=== PATIENT | female | born 1940 | race Caucasian/White ===

== ENCOUNTER 2016-09-23 07:59 | Emergency (ER) | payer OTHER ==
--- NOTE | 2016-09-23 08:16 | EDPHY ---
H & P Stated Complaint: STRUCK LEFT HAND AGAINST A TABLE Time Seen by Provider: 09/23/16 08:15 HPI/ROS: CHIEF COMPLAINT: Left hand injury HISTORY OF PRESENT ILLNESS: The patient presents to the ED complaining of left hand pain and swelling. She has marked pain soft tissue swelling noted over her thenar eminence. While throwing a blanket onto a bed, the patient struck a television senior marketing associate her room prior to arrival. The patient felt as if there may have been some deformity noted to the 1st digit. The patient complains of moderate to severe pain with palpation. She denies acute numbness or weakness. The patient is not on blood thinners. REVIEW OF SYSTEMS: A comprehensive 10 point review of systems is otherwise negative aside from elements mentioned in the history of present illness. Source: Patient Exam Limitations: No limitations - Personal History Current Tetanus/Diphtheria Vaccine: Yes Tetanus Vaccine Date: <M 10 YEARS - Medical/Surgical History Hx Asthma: Yes Hx Chronic Respiratory Disease: No Hx Diabetes: No Hx Cardiac Disease: No Hx Renal Disease: No Hx Cirrhosis: No Hx Alcoholism: No Hx HIV/AIDS: No Hx Splenectomy or Spleen Trauma: No Other PMH: PMH: ASTHMA. PSH: HYSTERECTOMY, THYROIDECTOMY, KIDNEY CANCER AND REMOVAL, PARATHYROIDECTOMY - Social History Smoking Status: Never smoked - Physical Exam Exam: General Appearance: Alert, no distress Skin: Bruising and ecchymosis noted to the left hand predominantly over the thenar eminence. Bruising ecchymosis noted over the dorsal aspect of the 2nd and 3rd MCP joints. Extremities: Tenderness to palpation throughout the left 1st finger. Decreased range of motion with flexion and extension noted at the 1st finger Neurological: Sensation intact to light touch in the left upper extremity Constitutional: Initial Vital Signs Temperature (C) 36.6 C 09/23/16 08:00 Heart Rate 86 09/23/16 08:00 Respiratory Rate 16 09/23/16 08:00 Blood Pressure 167/98 H 09/23/16 08:00 O2 Sat (%) 96 09/23/16 08:00 O2 Delivery Mode Room Air Allergies/Adverse Reactions: azithromycin [From Zithromax] Allergy (Severe, Verified 07/30/09 10:57) C DIFF cephalexin [Cephalexin] Allergy (Severe, Verified 07/30/09 10:59) Diarrhea cephalexin monohydrate [From Keflex] Allergy (Severe, Verified 07/30/09 10:59) THICKENED TONGUE, DIARRHEA clindamycin [Clindamycin] Allergy (Severe, Verified 07/30/09 10:57) C DIFF metronidazole [From Flagyl] Allergy (Severe, Verified 07/30/09 10:56) POSSIBLE TIA SYMPTOMS Metronidazole HCl [From Flagyl] Allergy (Severe, Verified 07/30/09 10:56) POSSIBLE TIA SYMPTOMS Penicillins Allergy (Severe, Verified 07/30/09 10:58) THROAT CLOSES Sulfa (Sulfonamide Antibiotics) Allergy (Severe, Verified 07/30/09 10:58) KIDNEY DAMAGE banana Allergy (Verified 02/02/16 17:37) clarithromycin Allergy (Verified 02/02/16 17:37) ARTICHOKE, EGG PLANT Allergy (Severe, Uncoded 07/30/09 11:00) BLEEDING MOUTH Home Medications: Medication Instructions Recorded Estropipate [Ogen 1.5mg (*)] 1.5 mg PO DAILY 06/02/09 Lactobacillus Acidophilus 1 each PO MWF 02/02/16 [Acidophilus Lactobacillus] Multivitamins [Multivitamin (*)] 1 each PO DAILY 02/02/16 [place]-3 Fatty Acids [Fish Oil 1000 1,000 mg PO MWF 02/02/16 mg (*)] Ubidecarenone [Coenzyme Q-10] 200 mg PO DAILY 02/02/16 Acetaminophen [Tylenol ES 500 mg 1,000 mg PO Q8 #60 tab 02/05/16 (*)] Ibuprofen [Motrin (*)] 200 mg PO Q6 #40 tab 02/05/16 Levothyroxine [Synthroid 50 mcg 50 mcg PO DAILY AT 6AM #0 tab 02/05/16 (*)] Hydrocodone/APAP 5/325 [Cortland 1 - 2 each PO Q6 PRN #20 tab 09/23/16 5/325] Medical Decision Making - Diagnostics Imaging Results: Imaging Impressions Hand X-Ray 09/23/16 08:15 Impression: 1. Moderate degenerative osteoarthritic change at the thumb carpometacarpal joint, with no convincing evidence of an acute superimposed fracture. Nonetheless, if there is a high clinical concern regarding an occult carpal fracture, conservative management and short-term repeat radiographic follow-up in 7-14 days is suggested. 2. Chondrocalcinosis. 3. Bone demineralization. LEFT HAND (3 Views, at 8:31 AM): There is soft tissue swelling at the thenar eminence with mild separation of the webspace of between the first and second metacarpals (consistent with the clinically observable soft tissue hematoma), and on the lateral view there appears to be some dorsal soft tissue swelling at the level of the metacarpophalangeal joints. There is no radiopaque foreign body. There is no convincing acute fracture. Moderately advanced degenerative osteoarthritic change at the thumb carpometacarpal joint is seen. Chondrocalcinosis in the wrist is observed. Impression: There is no acute osseous abnormality identified. Results were discussed with Dr. Liam Painting at 8:48 AM on 09/23/2016. Wrist X-Ray 09/23/16 08:16 Impression: 1. Moderate degenerative osteoarthritic change at the thumb carpometacarpal joint, with no convincing evidence of an acute superimposed fracture. Nonetheless, if there is a high clinical concern regarding an occult carpal fracture, conservative management and short-term repeat radiographic follow-up in 7-14 days is suggested. 2. Chondrocalcinosis. 3. Bone demineralization. LEFT HAND (3 Views, at 8:31 AM): There is soft tissue swelling at the thenar eminence with mild separation of the webspace of between the first and second metacarpals (consistent with the clinically observable soft tissue hematoma), and on the lateral view there appears to be some dorsal soft tissue swelling at the level of the metacarpophalangeal joints. There is no radiopaque foreign body. There is no convincing acute fracture. Moderately advanced degenerative osteoarthritic change at the thumb carpometacarpal joint is seen. Chondrocalcinosis in the wrist is observed. Impression: There is no acute osseous abnormality identified. Results were discussed with Dr. Liam Painting at 8:48 AM on 09/23/2016. ED Course/Re-evaluation: The patient presents to the ED after a possible dislocation of her 1st MTP joint. The patient is noted to be neurovascularly intact. X-rays demonstrate no evidence of an obvious fracture. The patient is noted to have fairly significant soft tissue swelling and tenderness involving the 1st MTP joint. Given the extent of the soft tissue swelling, I did consult with Dr. Carter our on -call hand surgeon. Dr. Carter did evaluate the patient in the emergency department. At this point time there is not an indication for surgical intervention. The patient will be discharged home with close follow up with Hand surgery. She is given customary aftercare instructions and return precautions. Differential Diagnosis: Differential diagnosis considered includes fracture, sprain, dislocation, neurovascular injury, compartment syndrome - Data Points Medications Given: Discontinued Medications Acetaminophen (Tylenol) 650 mg PO EDNOW ONE Stop: 09/23/16 09:23 Last Admin: 09/23/16 09:25 Dose: 650 mg Departure - Departure Disposition: Home, Routine, Self-Care Clinical Impression: Contusion, hand Qualifiers: Encounter type: initial encounter Laterality: left Qualified Code(s): S60.222A - Contusion of left hand, initial encounter Condition: Good Instructions: Contusion in Adults (ED) Additional Instructions: 1. Wear splint and ice as directed per Dr. Carter. 2. Cortland as needed for pain. 3. Please return to the ED for markedly worsening pain or other concerns. Referrals: Nicolas Carter MD [Medical Doctor] - As per Instructions
[2016-09-23] MEDS ORDERED: ACETAMINOPHEN 325 MG TAB PO ONE (09:22)
[2016-09-23 11:02] VITALS: BP 131/112; PULSE 64; RESP 18; TEMP 98.2; O2SAT 97
--- NOTE | 2016-09-23 20:23 | GCON ---
[f rep st] CONSULTATION EMERGENCY DEPARTMENT CONSULTATION NOTE DATE OF CONSULTATION: 09/23/2016 REASON FOR CONSULTATION: Left hand injury. HISTORY: The patient is a 76-year-old otherwise healthy female who earlier today was throwing a tennille nket over her bed when she impacted forcefully against a rigid plastic TV stand. She felt that ther e was a deformity of her thumb which she pulled on and snapped back into place. There was marked sw elling of her hand at presentation. I have reviewed patient's intake and discussed her care with Dr Pat Painting in the [facility] Emergency Department. He was concerned about the rapid advancement of profo und swelling of her hand. I reviewed the rest of her history, including a brief review of systems, that indicate no history of bleeding diathesis. FOCUSED EXAMINATION: Her right hand is markedly swollen over the index finger metacarpophalangeal j oint. Dr. Painting re-examined the patient and noted that the swelling over the thenar muscle group w as diminished dramatically from the time of her presentation, roughly an hour prior to my visit with the patient. She has a normal sensory examination to light touch in the radial, median, and ulnar nerve distributions. Capillary refill is 2 seconds; less in the finger pulps. She has minimal swel ling around the 1st CMC joint, but is markedly tender to any attempts to move the 1st CMC joint. Th ere is some slight grinding sensation when this joint is moved manually. I have not attempted to mo ve her index finger metacarpophalangeal joint just due to the sheer swelling that she has a dorsally . There is no swelling palmarly at all. I have reviewed the patient's x-rays, and these do not demonstrate any obvious fracture of the index finger metacarpal or proximal phalanx, or of the thumb or radial side of the carpus. She does, how ever, have quite profound osteoarthritis on all articulating aspects of the trapezium, as well as mi ld arthritis at the distal radioulnar joint. There is some mild chondrocalcinosis of the TFCC and i n the proximal aspect of the DRUJ. She is able to make a loose composite fist today with tip-to-pal m apposition of the long, ring, and small fingers and a 2 cm tip-to-palm distance of the index finge r, mostly due to a lack of ability to flex the MP joint due to discomfort and significant swelling. Of note, she has minimal subcutaneous adipose tissue on her dorsal hands with quite visible intrins ic musculature, metacarpal bones, and dorsal veins. IMPRESSIONS/RECOMMENDATIONS: Likely spontaneous rupture of the dorsal vein of her hand. There is a possibility that she subluxed or dislocated her first carpometacarpal joint and then pulled this ba ck into position. I suspect that, with the severe osteoarthritis she has between the trapezium and 1st metacarpal, and the large intraosseous cyst in the base of the thumb metacarpal, she likely has sustained a small fracture that is not structurally significant but has caused bleeding into this ar ea. I expect that this will dissipate, and I have fabricated a splint for her today to help control the amount of motion in her hand, which should help her with the overall level of discomfort to luigi p it still. I have also explained that it would be best to see her in 6 days and follow up [facility], and potentially (at that time) initiate therapy if indicated. I explained to her what worseni ng swelling would be like and could cause, and what the risks of compartment syndrome of the hand ar e. I will see her as an outpatient. /[id number]/MODL
== END 2016-09-23 11:01 | disposition home or self-care (01) ==
DX: S60.222A Contusion of left hand, initial encounter (principal); J45.909 Unspecified asthma, uncomplicated; Z85.528 Personal history of other malignant neoplasm of kidney; W22.8XXA Striking against or struck by other objects, initial encounter; Y93.89 Activity, other specified

== ENCOUNTER → 2016-11-07 | Outpatient (CLI) | payer OTHER | LOC: BMCIMAGING 14:27 | PROVIDERS: ATTEND Family Medicine | DX: Z12.31 Encounter for screening mammogram for malignant neoplasm of breast (principal) | CPT/HCPCS: G0202 ==

== ENCOUNTER → 2017-11-09 | Outpatient (CLI) | payer OTHER | LOC: BMCIMAGING 13:03 | PROVIDERS: ATTEND Family Medicine | DX: Z12.31 Encounter for screening mammogram for malignant neoplasm of breast (principal) ==

== ENCOUNTER 2018-06-23 10:55 | Inpatient (IN) | payer OTHER ==
[2018-06-23] MEDS ORDERED: LORazepam 2 MG/ML INJ IVP ONE (11:45)
--- NOTE | 2018-06-23 11:45 | EDPHY ---
HPI/HX/ROS/PE/MDM Narrative: CHIEF COMPLAINT: Dizziness, shaky, STUBBS. HPI: This patient is a 77 year old female with history of hypothyroid. She complains of dizziness, shaking, and headache which began upon waking this morning. She endorses mild headache and back ache. Her at bedside notes she has been feeling dizzy and shaky intermittently for several months, but this is the most severe. It is generally worse in the mornings. This morning, she was unable to even stand, which is unusual for her. She is very anxious regarding her symptoms today. She does endorse some changes in her medication regimen lately, and notes she has been taking a half dose of her levothyroxine since January per her PCP's recommendation. No chest pain, difficulty breathing, fever, or other associated symptoms. REVIEW OF SYSTEMS: A comprehensive 10 system review of systems is otherwise negative aside from elements mentioned in the history of present illness and medical decision making. PMH: Hypothyroid. Asthma. Hysterectomy. Partial thyroidectomy. History of kidney cancer s/p kidney resection. Parathyroidectomy. SOCIAL HISTORY: . Retired. PCP Dr. Arevalo. PHYSICAL EXAM: General:Patient is alert, in no acute distress. ENT:Eyes are normal to inspection. ENT inspection normal. Neck: Normal inspection. Full range of motion. Respiratory:No respiratory distress. Breath sounds normal bilaterally. Cardiovascular: Regular rate and rhythm. Strong peripheral pulses. Normal cap refill. Abdomen:The abdomen is nontender to palpation. There are no peritoneal signs. There are normal bowel sounds. Back: Normal to inspection. No tenderness to palpation. Skin: Normal color. No rash. Warm and dry. Extremities: Normal appearance. Full range of motion. Neuro: Oriented x3. Normal motor function. Normal sensory function. ED Course: 77 y/o female presents with weakness, dizziness, and tremors. She is quite anxious and tremorous on exam. Plan for labs including CBC, chemistries, TSH. Plan to administer 0.5mg IV Ativan for symptom relief. Reviewed laboratory symptoms. These are largely unremarkable. TSH within normal limits. Reassessed patient. She states she is feeling better following Ativan administration and her tremor has resolved. She would like to be discharged home. Plan to discharge in good condition following road test. She will follow up with her primary care provider and with neurology for further evaluation. 14:[address] failed [address] test and now complains of diplopia. Plan to admit for further management. 14:26 Spoke with hospitalist service. Dr. Wharton accepts admission. Plan for MRI brain. - Data Points Laboratory Results: Laboratory Results 06/23/18 11:43 06/23/18 11:43 06/23/18 06/23/18 11:43 11:43 WBC 8.57 10^3/uL 10^3/uL (3.80-9.50) RBC 4.82 10^6/uL 10^6/uL (4.18-5.33) Hgb 14.6 g/dL g/dL (12.6-16.3) Hct 42.6 % % (38.0-47.0) MCV 88.4 fL fL (81.5-99.8) MCH 30.3 pg pg (27.9-34.1) MCHC 34.3 g/dL g/dL (32.4-36.7) RDW 12.9 % % (11.5-15.2) Plt Count 231 10^3/uL 10^3/uL (150-400) MPV 9.9 fL fL (8.7-11.7) Neut % (Auto) 74.2 % % (39.3-74.2) Lymph % (Auto) 18.6 % % (15.0-45.0) [place] % (Auto) 5.5 % % (4.5-13.0) Eos % (Auto) 0.8 % % (0.6-7.6) Baso % (Auto) 0.7 % % (0.3-1.7) Nucleat RBC Rel Count 0.0 % % (0.0-0.2) Absolute Neuts (auto) 6.36 10^3/uL 10^3/uL (1.70-6.50) Absolute Lymphs (auto) 1.59 10^3/uL 10^3/uL (1.00-3.00) Absolute Monos (auto) 0.47 10^3/uL 10^3/uL (0.30-0.80) Absolute Eos (auto) 0.07 10^3/uL 10^3/uL (0.03-0.40) Absolute Basos (auto) 0.06 10^3/uL 10^3/uL (0.02-0.10) Absolute Nucleated RBC 0.00 10^3/uL 10^3/uL (0-0.01) Immature Gran % 0.2 % % (0.0-1.1) Immature Gran # 0.02 10^3/uL 10^3/uL (0.00-0.10) Sodium 139 mEq/L mEq/L (135-145) Potassium 4.2 mEq/L mEq/L (3.5-5.2) Chloride 110 mEq/L mEq/L (97-110) Carbon Dioxide 19 mEq/l L mEq/l (22-31) Anion Gap 10 mEq/L mEq/L (6-14) BUN 16 mg/dL mg/dL (7-23) Creatinine 0.8 mg/dL mg/dL (0.6-1.0) Estimated GFR > 60 Glucose 88 mg/dL mg/dL (70-100) Calcium 9.4 mg/dL mg/dL (8.5-10.4) TSH 2.370 uIU/mL uIU/mL (0.465-4.680) Medications Given: Discontinued Medications Lorazepam (Ativan Injection) 0.5 mg IVP EDNOW ONE Stop: 06/23/18 11:46 Last Admin: 06/23/18 11:51 Dose: 0.5 mg General Time Seen by Provider: 06/23/18 11:14 Initial Vital Signs: Initial Vital Signs Temperature (C) 36.7 C 06/23/18 11:08 Heart Rate 89 06/23/18 11:08 Respiratory Rate 18 06/23/18 11:08 Blood Pressure 142/102 H 06/23/18 11:08 O2 Sat (%) 96 06/23/18 11:08 O2 Delivery Mode Room Air Allergies/Adverse Reactions: azithromycin [From Zithromax] Allergy (Severe, Verified 06/23/18 11:08) C DIFF cephalexin [Cephalexin] Allergy (Severe, Verified 06/23/18 11:08) Diarrhea cephalexin monohydrate [From Keflex] Allergy (Severe, Verified 06/23/18 11:08) THICKENED TONGUE, DIARRHEA clindamycin [Clindamycin] Allergy (Severe, Verified 06/23/18 11:08) C DIFF metronidazole [From Flagyl] Allergy (Severe, Verified 06/23/18 11:08) POSSIBLE TIA SYMPTOMS Metronidazole HCl [From Flagyl] Allergy (Severe, Verified 06/23/18 11:08) POSSIBLE TIA SYMPTOMS Penicillins Allergy (Severe, Verified 06/23/18 11:08) THROAT CLOSES Sulfa (Sulfonamide Antibiotics) Allergy (Severe, Verified 06/23/18 11:08) KIDNEY DAMAGE banana Allergy (Verified 06/23/18 11:08) clarithromycin Allergy (Verified 06/23/18 11:08) ARTICHOKE, EGG PLANT Allergy (Severe, Uncoded 07/30/09 11:00) BLEEDING MOUTH Home Medications: Medication Instructions Recorded Multivitamins [Multivitamin (*)] 1 each PO DAILY 02/02/16 Cholecalciferol Vit D3 [Vitamin D3 1,000 units PO DAILY 06/23/18 (*)] Diltiazem HCl [Cartia Xt] 120 mg PO DAILY 06/23/18 Estradiol [Estradiol 1 MG (*)] 1 mg PO DAILY 06/23/18 Ibuprofen [Motrin (*)] 200 mg PO DAILY PRN 06/23/18 Levothyroxine [Synthroid 50 mcg 25 mcg PO DAILY06 06/23/18 (*)] Liothyronine Sodium [Cytomel 5 mcg 2.5 mcg PO DAILY 06/23/18 (*)] Rosuvastatin Calcium [Crestor] 5 mg PO DAILY 06/23/18 Departure - Departure Disposition: [facility] Inpatient Acute Clinical Impression: Tremor, Diplopia, Weakness Condition: Fair Report Scribed for: Chucho Gomez Report Scribed by: Debbi Alejandre Date of Report: 06/23/18 Time of Report: 14:18 Physician Review and Approval Statement: Portions of this note were transcribed by an ED scribe. I personally performed the history, physical exam, and medical decision making; and confirm the accuracy of the information in the transcribed note.
[2018-06-23 11:52] LABS: PLATELET COUNT 231 10^3/uL (150-400)
[2018-06-23] MEDS ORDERED: ONDANSETRON DISINTEGRATING 4 MG TAB PO PRN (15:07)
[2018-06-23] MEDS ORDERED: ACETAMINOPHEN 325 MG TAB PO PRN (15:07)
[2018-06-23] MEDS ORDERED: ONDANSETRON 4 MG/2 ML VIAL IVP PRN (15:07)
[2018-06-23] MEDS ORDERED: NS 1,000 ML IV SCH (15:15)
--- NOTE | 2018-06-23 15:15 | PDGENHP ---
History and Physical - Chief Complaint weakness - History of Present Illness This patient is a 77 year old female with history of hypothyroid. She complains of dizziness, shaking, and headache which began upon waking this morning. She endorses mild headache and back ache. Her at bedside notes she has been feeling dizzy and shaky intermittently for several months, but this is the most severe. It is generally worse in the mornings. This morning, she was unable to even stand, which is unusual for her. No chest pain, difficulty breathing, fever, or other associated symptoms. She was noted to have anxiety and was given a low dose Benzo. Since she has been confused and c/o diplopia. Failed road test Afebrile PMH: Hypothyroid. Asthma. Hysterectomy. Partial thyroidectomy. History of kidney cancer s/p kidney resection. Parathyroidectomy. SOCIAL HISTORY: . Retired. PCP Dr. Arevalo. History Information - Allergies/Home Medication List Allergies/Adverse Reactions: azithromycin [From Zithromax] Allergy (Severe, Verified 06/23/18 11:08) C DIFF cephalexin [Cephalexin] Allergy (Severe, Verified 06/23/18 11:08) Diarrhea cephalexin monohydrate [From Keflex] Allergy (Severe, Verified 06/23/18 11:08) THICKENED TONGUE, DIARRHEA clindamycin [Clindamycin] Allergy (Severe, Verified 06/23/18 11:08) C DIFF metronidazole [From Flagyl] Allergy (Severe, Verified 06/23/18 11:08) POSSIBLE TIA SYMPTOMS Metronidazole HCl [From Flagyl] Allergy (Severe, Verified 06/23/18 11:08) POSSIBLE TIA SYMPTOMS Penicillins Allergy (Severe, Verified 06/23/18 11:08) THROAT CLOSES Sulfa (Sulfonamide Antibiotics) Allergy (Severe, Verified 06/23/18 11:08) KIDNEY DAMAGE banana Allergy (Verified 06/23/18 11:08) clarithromycin Allergy (Verified 06/23/18 11:08) ARTICHOKE, EGG PLANT Allergy (Severe, Uncoded 07/30/09 11:00) BLEEDING MOUTH Home Medications: Multivitamins [Multivitamin (*)] 1 each PO DAILY 02/02/16 [Last Taken 06/23/18] Cholecalciferol Vit D3 [Vitamin D3 (*)] 1,000 units PO DAILY 06/23/18 [Last Taken Unknown] Diltiazem HCl [Cartia Xt] 120 mg PO DAILY 06/23/18 [Last Taken 06/23/18] Donepezil HCl [Aricept] 10 mg PO DAILY 06/23/18 [Last Taken 06/22/18] Estradiol [Estradiol 1 MG (*)] 1 mg PO DAILY 06/23/18 [Last Taken 06/23/18] Ibuprofen [Motrin (*)] 200 mg PO DAILY PRN 06/23/18 [Last Taken Unknown] Levothyroxine [Synthroid 50 mcg (*)] 25 mcg PO DAILY06 06/23/18 [Last Taken ] Liothyronine Sodium [Cytomel 5 mcg (*)] 2.5 mcg PO DAILY 06/23/18 [Last Taken ] Rosuvastatin Calcium [Crestor 10mg (RX)] 5 mg PO DAILY 06/23/18 [Last Taken 04/28] Sertraline HCl [Zoloft 50mg (*)] 50 mg PO DAILY 06/23/18 [Last Taken 06/22/18] I have personally reviewed and updated: medical history, social history - Social History Smoking Status: Never smoked Review of Systems Review of Systems: ROS: 10pt was reviewed & negative except for what was stated in HPI & below Physical Exam Physical Exam: Temp Pulse Resp BP Pulse Ox 36.5 C 60 20 142/75 H 98 06/23/18 15:00 06/23/18 15:00 06/23/18 15:00 06/23/18 13:30 06/23/18 15:00 Constitutional: chronically ill appearing Eyes: PERRL Ears, Nose, Mouth, Throat: dry mucous membranes Cardiovascular: regular rate and rhythym Respiratory: no respiratory distress, no rales or rhonchi, clear to auscultation Gastrointestinal: normoactive bowel sounds, soft, non-tender abdomen Skin: warm Musculoskeletal: generalized weakness Neurologic: No AAOx3 Psychiatric: interacting appropriately, not anxious Lymph, Heme, Immunologic: No petechiae Lab Data & Imaging Review 06/23/18 11:43 06/23/18 11:43 WBC 8.57 10^3/uL (3.80-9.50) 06/23/18 11:43 RBC 4.82 10^6/uL (4.18-5.33) 06/23/18 11:43 Hgb 14.6 g/dL (12.6-16.3) 06/23/18 11:43 Hct 42.6 % (38.0-47.0) 06/23/18 11:43 MCV 88.4 fL (81.5-99.8) 06/23/18 11:43 MCH 30.3 pg (27.9-34.1) 06/23/18 11:43 MCHC 34.3 g/dL (32.4-36.7) 06/23/18 11:43 RDW 12.9 % (11.5-15.2) 06/23/18 11:43 Plt Count 231 10^3/uL (150-400) 06/23/18 11:43 MPV 9.9 fL (8.7-11.7) 06/23/18 11:43 Neut % (Auto) 74.2 % (39.3-74.2) 06/23/18 11:43 Lymph % (Auto) 18.6 % (15.0-45.0) 06/23/18 11:43 [place] % (Auto) 5.5 % (4.5-13.0) 06/23/18 11:43 Eos % (Auto) 0.8 % (0.6-7.6) 06/23/18 11:43 Baso % (Auto) 0.7 % (0.3-1.7) 06/23/18 11:43 Nucleat RBC Rel Count 0.0 % (0.0-0.2) 06/23/18 11:43 Absolute Neuts (auto) 6.36 10^3/uL (1.70-6.50) 06/23/18 11:43 Absolute Lymphs (auto) 1.59 10^3/uL (1.00-3.00) 06/23/18 11:43 Absolute Monos (auto) 0.47 10^3/uL (0.30-0.80) 06/23/18 11:43 Absolute Eos (auto) 0.07 10^3/uL (0.03-0.40) 06/23/18 11:43 Absolute Basos (auto) 0.06 10^3/uL (0.02-0.10) 06/23/18 11:43 Absolute Nucleated RBC 0.00 10^3/uL (0-0.01) 06/23/18 11:43 Immature Gran % 0.2 % (0.0-1.1) 06/23/18 11:43 Immature Gran # 0.02 10^3/uL (0.00-0.10) 06/23/18 11:43 Sodium 139 mEq/L (135-145) 06/23/18 11:43 Potassium 4.2 mEq/L (3.5-5.2) 06/23/18 11:43 Chloride 110 mEq/L (97-110) 06/23/18 11:43 Carbon Dioxide 19 mEq/l (22-31) L 06/23/18 11:43 Anion Gap 10 mEq/L (6-14) 06/23/18 11:43 BUN 16 mg/dL (7-23) 06/23/18 11:43 Creatinine 0.8 mg/dL (0.6-1.0) 06/23/18 11:43 Estimated GFR > 60 06/23/18 11:43 Glucose 88 mg/dL (70-100) 06/23/18 11:43 Calcium 9.4 mg/dL (8.5-10.4) 06/23/18 11:43 TSH 2.370 uIU/mL (0.465-4.680) 06/23/18 11:43 Assessment & Plan Assessment: #Diplopia (Acute) #Tremor, affecting all 4 extremities. Resolved with Benzo. #Generalized Weakness (Acute) #Encephalopathy, metabolic, likely due to Benzo, clearing #Hypothyroidism #HTN, on a CCB. Query Orthostatic hypotension #Query malnutrition Plan: Admission Await MRI brain Orthostatics. for now I am continuing the CCB telemetry, monitor for bradycardia 1 L NS PT/OT Full code, confirmed at bedside
[2018-06-24 05:21] LABS: PLATELET COUNT 199 10^3/uL (150-400)
[2018-06-24] MEDS ORDERED: SERTRALINE HCL 50 MG TAB PO SCH (09:00)
[2018-06-24] MEDS ORDERED: DONEPEZIL HCL 5 MG TAB PO SCH (09:00)
[2018-06-24] MEDS ORDERED: ROSUVASTATIN CALCIUM 10 MG TAB PO SCH ×2 (09:00→21:00)
[2018-06-24] MEDS: DILTIAZEM CD 120 MG CAP PO SCH (09:40)
[2018-06-24] MEDS: LEVOTHYROXINE 50 MCG TAB PO SCH (09:41)
[2018-06-24] MEDS: LIOTHYRONINE SODIUM 5 MCG TAB PO SCH (09:41)
[2018-06-24] MEDS: ESTRADIOL 1 MG TAB PO SCH (09:41)
[2018-06-24] MEDS: CHOLECALCIFEROL VIT D3 1,000 UNITS TAB PO SCH (09:42)
[2018-06-24] MEDS: MULTIVITAMINS 1 EACH TAB PO SCH (09:42)
--- NOTE | 2018-06-24 09:44 | HOSPPROG ---
Hospitalist Progress Note Assessment/Plan: This patient is a 77 year old female with history of hypothyroid. She complains of dizziness, shaking, and headache which began upon waking this morning. She endorses mild headache and back ache. Her symptoms are worse in the morning. #Diplopia (Acute) -MRI shows nothing acute -having intermittent episodes *metabolic encephalopathy -due to Ativan given *Generalized weakness -await PT and OT to see *hypothyroid -TSH stable, patient said since her dose was decreased she has been feeling poorly *tremor -this has been ongoing for a period of time, but per patient and her this has worsened *HTN -bp a bit elevated this morning *underweight w a BMI of 20.7 *dementia -mild, on Aricept *plan: left a message to see if neurology can see, is very concerned about her coming home and falling. Subjective: Traci feels better than when admitted, but cont to note she has intermittent diplopia. Objective: Vital Signs Temp Pulse Resp BP Pulse Ox 36.6 C 86 16 157/87 H 92 06/24/18 08:00 06/24/18 08:00 06/24/18 08:00 06/24/18 08:00 06/24/18 08:00 Laboratory Results 06/24/18 04:25 06/24/18 04:25 06/23/18 06/24/18 06/25/18 05:59 05:59 05:59 Intake Total 250 Output Total 200 Balance 50 - Physical Exam Constitutional: no apparent distress, appears nourished Eyes: PERRL Ears, Nose, Mouth, Throat: hard of hearing Cardiovascular: regular rate and rhythym Respiratory: no respiratory distress Skin: warm Neurologic: AAOx3 Psychiatric: interacting appropriately ICD10 Worksheet Patient Problems: Problems Problem Status Onset Diplopia Acute Tremor Acute Weakness Acute Facial contusion Acute Multiple rib fractures Acute
--- NOTE | 2018-06-24 14:08 | ASMTCMCOM ---
CM Note CM Note Notes: Pts case discussed w/ Marybeth Jack NP. Pt is a 77 y/o female admitted for encephalopathy. Therapies have been ordered and awaiting recommendations. Needs are TBD at this time. Neurology has been consulted. CM to follow. Plan: TBD Date Signed: 06/24/2018 02:08 PM Electronically Signed By:SANGEETA Mike
--- NOTE | 2018-06-24 19:13 | GCON ---
[f rep st] CONSULTATION NEUROLOGIC CONSULTATION REFERRING PHYSICIAN: Marybeth Jack, HEATHER The patient is a 77-year-old woman who I am asked to see in neurologic consultation regarding some do uble vision. She has a history of some mild tremulousness, but then recently has had episodes where she gets more profoundly tremulous, particularly in the last few weeks, and double vision has started only yesterday and was characterized by horizontal diplopia in all directions of gaze. It lasted se veral hours and then fluctuated or resolved, and this morning she came back again with similar charac teristics, but has now resolved again. She is followed at the [facility] for cognitive impairment, but is currently on some Aricept which was recently tried and recentl y had some Zoloft added because she complains of being angry at times and her moods can fluctuate a b it. They tell me it is not clear if she has actually been diagnosed with dementia or Alzheimer's. S he is not describing focal numbness or weakness. However, this tremulousness is often associated wit h unsteadiness as well and may be more prominent in the mornings. There perhaps is some correlation with the timing of these recent medication additions. Her voice was also fairly soft yesterday but d enying any droopy eyelids or fatigable weakness. Her brain MRIs did not show any evidence of acute stroke, but some nonspecific generalized atrophy an d then some white matter change, but also somewhat prominent in the olman. PAST MEDICAL HISTORY: Notable for hypothyroidism, asthma, hysterectomy, partial thyroidectomy with t hyroid dysfunction, history of renal cell carcinoma and parathyroidectomy. She is retired. No smoki ng or alcohol. Her primary care is Dr. Hanny Arevalo. She lives at home with her and uses a walker sometimes, but he says she can lose her balance and he is a little worried about her. MEDICATIONS: At home: Multivitamin, vitamin D, diltiazem, donepezil, estradiol, Motrin, levothyroxi ne, Crestor, and sertraline. ALLERGIES: Listed to azithromycin, cephalexin, clindamycin, metronidazole, penicillin, sulfa, clarit hromycin. REVIEW OF SYSTEMS: A 10-point review of systems was completed and unremarkable except for that noted above. PHYSICAL EXAM: VITAL SIGNS: Blood pressure is 137/83, pulse of 66, respirations 14, temperature 36. 3. She had her blood pressure tested supine at 157/87 and then 137/86 standing and 129/86 sitting wi th the pulse rate going from 86 supine to 112 on standing. GENERAL: She is well-developed, in no ac boom distress. EYES: Clear. NECK: Supple. No bruits or masses. CARDIAC: Regular rate and rhythm . No murmur. NEUROLOGIC: She is awake and alert and attentive, but a little disorganized in her th ought processes. She is comfortable with superficial basic conversation and tries to make jokes and laughs. However, her general fund of knowledge seems to be reduced. She repeated herself a few time s, stating that she was "angry." Her affect did not suggest anger, but she says this is partly what has been frustrating for her. She says she does not feel depressed. Her daughter said that she has noticed her to be sleeping a bit more. Pupils are 3 mm and reactive. Extraocular movements are inta ct without any diplopia subjectively. No fatigable weakness of eye movements and no ptosis or fatiga bility on ptosis. No weakness of neck flexion. Voice remains strong. Motor exam reveals essentiall y normal strength for her age. I do not detect fatigable weakness in the upper or lower extremities. She has a mild tremor on sustained posture and [id number], but no resting tremor. Reflexes 1+. Otherwise, sensation is preserved for temperature, light touch. IMPRESSION: Total unit time of 55 minutes. The patient has a constellation of nonspecific symptoms, but the diplopia is new and the more significant tremulousness is relatively new. MRI shows changes in the olman, which could make her at risk for some diplopia. I do not see evidence of acute stroke. Other sources, such as ischemia to one of the cranial nerves is not thought to be likely based on t he fact that this is fluctuating. Therefore, we have to consider the possibility of myasthenia gravi s, but she lacks any other features for that. I will check antibodies for that. She has cognitive i mpairment and might have mild dementia. I do not know all the details from her neuropsych evaluation s at the [facility]. Because of potential side effects from Zoloft or Aricept, producing increased r isk of hypotension and tremulousness is possible, I would like those drugs discontinued for now. I t alked about all of this with her and her daughter and they are comfortable with this approach , as well as the patient. Perhaps there is an early neurodegenerative disease and I do suspect there is significant cognitive disorder. For now, I think she should be observed overnight further to red e sure she is stable and we would emphasize improving hydration in the morning and maybe waiting at l east 30 minutes before taking pills. A relatively conservative approach seems appropriate to me morgan t now and they all agree. /[id number]/MODL
--- NOTE | 2018-06-24 21:13 | PDMN ---
Medical Necessity Medical necessity: Change to inpt as of 06/24/18 @ 16:39, meets inpt criteria per MD order and Head and neck disease GRG. 77 y/o admitted w/acute diplopia, tremor, gen weakness, and metabolic encephalopathy. Upgraded to inpt status for further workup for persistent/intermittent diplopia, neuro consult, PT/OT. Est LOS>2MN for ongoing eval/management of above.
[2018-06-25] MEDS: LEVOTHYROXINE 50 MCG TAB PO SCH (05:45)
--- NOTE | 2018-06-25 08:40 | NEUROPROG ---
Assessment: The patient denies any double vision this morning. She is close to her baseline now per family and her own reports. I witnessed her walking down the hallway with physical therapy safely using her rolling walker with a nice stride. I spoke to her and I believe she is safe for discharge and can follow up with me in about a month. Objective: Vital Signs Temp Pulse Resp BP Pulse Ox 36.6 C 72 12 138/90 H 96 06/25/18 07:15 06/25/18 07:15 06/25/18 07:15 06/25/18 07:15 06/25/18 07:15 06/24/18 06/25/18 06/26/18 05:59 05:59 05:59 Intake Total 500 Balance 500 Allergies/Adverse Reactions: azithromycin [From Zithromax] Allergy (Severe, Verified 06/23/18 11:08) C DIFF cephalexin [Cephalexin] Allergy (Severe, Verified 06/23/18 11:08) Diarrhea cephalexin monohydrate [From Keflex] Allergy (Severe, Verified 06/23/18 11:08) THICKENED TONGUE, DIARRHEA clindamycin [Clindamycin] Allergy (Severe, Verified 06/23/18 11:08) C DIFF metronidazole [From Flagyl] Allergy (Severe, Verified 06/23/18 11:08) POSSIBLE TIA SYMPTOMS Metronidazole HCl [From Flagyl] Allergy (Severe, Verified 06/23/18 11:08) POSSIBLE TIA SYMPTOMS Penicillins Allergy (Severe, Verified 06/23/18 11:08) THROAT CLOSES Sulfa (Sulfonamide Antibiotics) Allergy (Severe, Verified 06/23/18 11:08) KIDNEY DAMAGE banana Allergy (Verified 06/23/18 11:08) clarithromycin Allergy (Verified 06/23/18 11:08) ARTICHOKE, EGG PLANT Allergy (Severe, Uncoded 07/30/09 11:00) BLEEDING MOUTH
[2018-06-25] MEDS: DILTIAZEM CD 120 MG CAP PO SCH (08:52)
[2018-06-25] MEDS: ESTRADIOL 1 MG TAB PO SCH (08:52)
[2018-06-25] MEDS: MULTIVITAMINS 1 EACH TAB PO SCH (08:52)
[2018-06-25] MEDS: CHOLECALCIFEROL VIT D3 1,000 UNITS TAB PO SCH (08:53)
[2018-06-25] MEDS: LIOTHYRONINE SODIUM 5 MCG TAB PO SCH (08:53)
[2018-06-25 12:12] VITALS: BP 131/76
--- NOTE | 2018-06-25 12:48 | HOSPPROG ---
Hospitalist Progress Note Assessment/Plan: This patient is a 77 year old female with history of hypothyroid. She complains of dizziness, shaking, and headache which began upon waking this morning. She endorses mild headache and back ache. Her symptoms are worse in the morning. #Diplopia (Acute) -MRI shows nothing acute, but some changes in the olman which would make her at more risk for doplopia -r/o for Myasthenia Gravis, antibodies sent -having intermittent episodes,no diplopia this morning *metabolic encephalopathy -due to Ativan given *Generalized weakness -homecare *hypothyroid -TSH stable, patient said since her dose was decreased she has been feeling poorly *tremor -this has been ongoing for a period of time, but per patient and her this has worsened -recommendation is to stop Zoloft and Aricept *HTN -bp stable *underweight w a BMI of 20.7 *dementia -mild, on Aricept *plan: dc home w f/u with Dr Espinoza in a month Subjective: Traci is feeling well, anxious to go home Objective: Vital Signs Temp Pulse Resp BP Pulse Ox 36.6 C 74 15 131/76 H 97 06/25/18 07:15 06/25/18 12:00 06/25/18 12:00 06/25/18 12:00 06/25/18 12:00 06/24/18 06/25/18 06/26/18 05:59 05:59 05:59 Intake Total 500 Balance 500 - Physical Exam Constitutional: no apparent distress, appears nourished, not in pain Eyes: PERRL, EOMI Ears, Nose, Mouth, Throat: hearing normal Cardiovascular: regular rate and rhythym Respiratory: no respiratory distress Gastrointestinal: normoactive bowel sounds Skin: warm Musculoskeletal: full muscle strength Neurologic: AAOx3 Psychiatric: interacting appropriately ICD10 Worksheet Patient Problems: Problems Problem Status Onset Diplopia Acute Tremor Acute Weakness Acute Facial contusion Acute Multiple rib fractures Acute
--- NOTE | 2018-06-25 14:31 | GDS ---
[f rep st] DISCHARGE SUMMARY DISCHARGE DIAGNOSES: 1. Acute diplopia. 2. Metabolic encephalopathy. 3. Generalized weakness. 4. Hypothyroidism. 5. Tremor. 6. Hypertension. 7. Underweight with a body mass index of 20.7. 8. Dementia. CONSULTATION: Dr. Sukhdev Espinoza. HISTORY OF PRESENT ILLNESS: Briefly, Traci Kruger is a very sweet 77-year-old woman who has a history of mild dementia on Aricept who presented to the emergency room with increased tremors in the last few weeks and new onset double vision. It lasted for several hours and resolved. She is followed by [facility] for cognitive impairment. She is on Aricept. They recently had doubled her dose. They also added Zoloft because she complains of becoming angry at times. Her mood can fluctuate. She had an MRI of her brain, which did not show any evidence of an acute stroke but has some nonspecific generalized atrophy. Today she is doing markedly better. I have discussed and reviewed the plan of care with the patient and her . They both feel good about the recommendations of Dr. Espinoza and will follow up with him. HOSPITAL COURSE BY PROBLEM: 1. Acute diplopia: This has since resolved. Her MRI showed nothing acute, but she had some changes in the olman which can make her at more risk for diplopia. Dr. Espinoza has also sent studies out for myasthenia gravis. 2. Metabolic encephalopathy: This is due to Ativan given in the emergency room. This has since resolved. 3. Generalized weakness: Will order home care. 4. Hypothyroidism: The patient states that her Synthroid dose has been also decreased, which she feels is impacting her. Her TSH is stable. I told her to talk with her PCP about this. 5. Tremor: It could be secondary from the Zoloft and Aricept. These have both been discontinued to see if this improves. 6. Hypertension: Blood pressure is stable. 7. Underweight: She has a BMI of 20.7. 8. Dementia: This is very mild. DISCHARGE CONDITION: Stable. Blood pressure is 131/76, heart rate of 74, respiratory rate of 15, O2 saturation on room air 97%, temp 36.6 Celsius. MEDICATIONS AT DISCHARGE: Please see the EMR. DISCHARGE INSTRUCTIONS: 1. Stop the Zoloft and Aricept, and see how she does. 2. Drink a glass of juice in the morning. I suspect one of the reasons why she is so shaky is she does not eat for a while in the morning. 3. Return to the ER for fever, chest pain, difficulty breathing, or worsening conditions. Greater than 30 minutes spent discharging and coordinating her care. /[id number]/MODL MTDD
--- NOTE | 2018-06-25 14:39 | ASMTLACE ---
RYANE Length of stay for Answers: 2 days current admission Acuity / Level of Answers: Yes Care: Did the patient have an inpatient admission? Comorbidities - select Answers: Other Notes: Hypothyroid; Hx of canc er all that apply # of Emergency department Answers: 1-2 visits in the last 6 months Social determinants Answers: Mental health diagnosis (anxiety, depression, pers onality disorders, etc.) Score: 10 Date Signed: 06/25/2018 02:38 PM Electronically Signed By:SANGEETA Mike
--- NOTE | 2018-06-25 14:43 | ASMTDCNOTE ---
Case Management Discharge Discharge Order Complete? Answers: Yes Patient to Obtain Answers: Independently Medications Transportation Arranged Answers: Family/Friends EMTALA Complete Answers: No Case Management Transport Answers: No Form Complete Faxed Final Orders Answers: Yes Agency/Facility Transfer Answers: Yes Report Printed & Faxed to Receiving Agency Family Notified Answers: Yes Discharge Comments Notes: Pts case discussed w/ Marybeth Jack NP regarding d/c POC. CM met w/ pt and for dispo planning. Therapies are recommending HC. Both are agreeable to HC services. Referral sent to [facility]. [facility] is able to accept. CM available for changes. Plan: [facility]; PT, OT Date Signed: 06/25/2018 02:43 PM Electronically Signed By:SANGEETA Mike
--- NOTE | 2018-06-25 15:16 | ASDISCHSUM ---
Discharge Information Plan Status:Home with Home Health Medically Cleared to Leave:06/24/2018 Discharge Date:06/25/2018 02:30 PM CM D/C Disposition: ADT D/C Disposition:Home Health Service Projected Discharge Date:06/25/2018 11:00 AM Transportation at D/C: Discharge Delay Reason: Follow-Up Date:06/25/2018 11:00 AM Discharge Slot: Final Diagnosis: Placement Information Referral Type:*Home Health Care Services Referral ID:[id number] Provider Name:[facility] Address 1:[address] [facility] [address] Address 2: City:[place] Selection Factors: State:[place] Patient Contact Information Contact Name:STEPHEN Relationship: Address:[address] City:[place] Alternate Phone: State/Zip Code:[place] [address] Email: Financial Information Financial Class:Medicare Advantage Plans Primary Plan Desc:[employer] [employer] ADV Primary Plan Number:[id number] Secondary Plan Desc: Secondary Plan Number: Assessment Information LACE LACE Length of stay for Answers: 2 days current admission Acuity / Level of Answers: Yes Care: Did the patient have an inpatient admission? Comorbidities - select Answers: Other Notes: Hypothyroid; Hx of [facility] [place] er all that apply # of Emergency department Answers: 1-2 visits in the last 6 months Social determinants Answers: Mental health diagnosis (anxiety, depression, pers onality disorders, etc.) Score: 10 Date Signed: 06/25/2018 02:38 PM Electronically Signed By:SANGEETA Mike [facility] CM Progress Note CM Note CM Note Notes: Pts case discussed w/ Marybeth Jack NP. Pt is a 77 y/o female admitted for encephalopathy. Therapies have been ordered and awaiting recommendations. Needs are TBD at this time. Neurology has been consulted. CM to follow. Plan: TBD Date Signed: 06/24/2018 02:08 PM Electronically Signed By:SANGEETA Mike Case Management Discharge Plan Note Case Management Discharge Discharge Order Complete? Answers: Yes Patient to Obtain Answers: Independently Medications Transportation Arranged Answers: Family/Friends EMTALA Complete Answers: No Case Management Transport Answers: No Form Complete Faxed Final Orders Answers: Yes Agency/Facility Transfer Answers: Yes Report Printed & Faxed to Receiving Agency Family Notified Answers: Yes Discharge Comments Notes: Pts case discussed w/ Marybeth Jack NP regarding d/c POC. CM met w/ pt and for dispo planning. Therapies are recommending HC. Both are agreeable to HC services. Referral sent to [facility]. [facility] is able to accept. CM available for changes. Plan: [facility]; PT, OT Date Signed: 06/25/2018 02:43 PM Electronically Signed By:SANGEETA Mike Intervention Information
--- NOTE | 2018-06-25 15:39 | PDIAF ---
- Diagnosis Diagnosis: diplopia Code Status: Full Code - Medication Management Discharge Medications: electronically signed and located in the Home Medication List. - Orders Services needed: Home Care, Physical Therapy, Occupational Therapy Home Care Face to Face: I certify that this patient was under my care and that I had the required [id number] encounter meeting the encounter requirements on the discharge day. My findings support the fact that the patient is homebound as defined in Home Care Face to Face Continued: CMS Chapter 7 Medicare Benefits Manual 30.1.1 , The condition of the patient is such that there exists a normal inability to leave home and consequently, leaving home would require a considerable and taxing effort. Diet Recommendation: no restrictions on diet Diet Texture: Regular Texture Diet Additional Instructions: Follow up with your primary care provider and with neurology for further evaluation. Make an appointment w Dr Espinoza in a month Drink a glass of juice in the morning first and then take your medications Stop taking Sertraline (Zoloft) and stop Donepezil (Aricept) Return to the emergency department for fever, chest pain, difficulty breathing, or other worsening of condition. Take a copy of Dr Espinoza consultation to take with you to your [facility] appointment - Follow Up Care Current Providers and Referrals: Laquita Perkins MD [Primary Care Provider] - As per Instructions Sukhdev Espinoza MD [Medical Doctor] -
== END 2018-06-25 14:30 | disposition home health service (06) | DRG 123 ==
LOC: F3E 15:25 → OBSVTOIN 06-24 16:01
PROVIDERS: ADMIT Family Medicine; ATTEND Family Medicine
DX: H53.2 Diplopia (principal); G93.41 Metabolic encephalopathy; T42.4X5A Adverse effect of benzodiazepines, initial encounter; R53.1 Weakness; R25.1 Tremor, unspecified; R63.6 Underweight; Z68.20 Body mass index [BMI] 20.0-20.9, adult; E03.9 Hypothyroidism, unspecified; I10 Essential (primary) hypertension; F03.90 Unspecified dementia, unspecified severity, without behavioral disturbance, psychotic disturbance, mood disturbance, and anxiety
CPT/HCPCS: 83520-90; 96374; 97116-GP; 97161-GP; 97165-GO; 97535-GO; G0378; J2060

== ENCOUNTER 2018-06-27 13:58 | Observation (INO) | payer OTHER ==
--- NOTE | 2018-06-27 14:37 | EDPHY ---
H & P Stated Complaint: vallecillo cysts behind both knees very painful to walk, crying Time Seen by Provider: 06/27/18 14:37 - Personal History Current Tetanus/Diphtheria Vaccine: Yes Current Tetanus Diphtheria and Acellular Pertussis (TDAP): Yes Tetanus Vaccine Date: <M 10 YEARS - Medical/Surgical History Hx Asthma: Yes Hx Chronic Respiratory Disease: No Hx Diabetes: No Hx Cardiac Disease: No Hx Renal Disease: No Hx Cirrhosis: No Hx Alcoholism: No Hx HIV/AIDS: No Hx Splenectomy or Spleen Trauma: No Other PMH: PMH: ASTHMA resolved since childhood. PSH: HYSTERECTOMY, THYROIDECTOMY, KIDNEY CANCER AND REMOVAL, PARATHYROIDECTOMY, - Social History Smoking Status: Never smoked Constitutional: Initial Vital Signs Temperature (C) 36.4 C 06/27/18 14:08 Heart Rate 76 06/27/18 14:08 Respiratory Rate 16 06/27/18 14:08 Blood Pressure 154/109 H 06/27/18 14:08 O2 Sat (%) 98 06/27/18 14:08 O2 Delivery Mode Room Air Allergies/Adverse Reactions: azithromycin [From Zithromax] Allergy (Severe, Verified 06/27/18 14:12) C DIFF cephalexin [Cephalexin] Allergy (Severe, Verified 06/27/18 14:12) Diarrhea cephalexin monohydrate [From Keflex] Allergy (Severe, Verified 06/27/18 14:12) THICKENED TONGUE, DIARRHEA clindamycin [Clindamycin] Allergy (Severe, Verified 06/27/18 14:12) C DIFF metronidazole [From Flagyl] Allergy (Severe, Verified 06/27/18 14:12) POSSIBLE TIA SYMPTOMS Metronidazole HCl [From Flagyl] Allergy (Severe, Verified 06/27/18 14:12) POSSIBLE TIA SYMPTOMS Penicillins Allergy (Severe, Verified 06/27/18 14:12) THROAT CLOSES Sulfa (Sulfonamide Antibiotics) Allergy (Severe, Verified 06/27/18 14:12) KIDNEY DAMAGE banana Allergy (Verified 06/27/18 14:12) clarithromycin Allergy (Verified 06/27/18 14:12) ARTICHOKE, EGG PLANT Allergy (Severe, Uncoded 06/27/18 14:12) BLEEDING MOUTH Home Medications: Medication Instructions Recorded Multivitamins [Multivitamin (*)] 1 each PO DAILY 02/02/16 Cholecalciferol Vit D3 [Vitamin D3 1,000 units PO DAILY 06/23/18 (*)] Diltiazem HCl [Cartia Xt] 120 mg PO DAILY 06/23/18 Estradiol [Estradiol 1 MG (*)] 1 mg PO DAILY 06/23/18 Ibuprofen [Motrin (*)] 200 mg PO DAILY PRN 06/23/18 Levothyroxine [Synthroid 50 mcg 25 mcg PO DAILY06 06/23/18 (*)] Liothyronine Sodium [Cytomel 5 mcg 2.5 mcg PO DAILY 06/23/18 (*)] Rosuvastatin Calcium [Crestor] 5 mg PO DAILY 06/23/18 Medical Decision Making ED Course/Re-evaluation: CHIEF COMPLAINT: Painful Vallecillo's cyst HISTORY OF PRESENT ILLNESS: The patient is a 77 y/o female with a 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 The patient has had Vallecillo cysts for numerous years and has had them drained multiple times. Today the pain became so severe that she has been unable to walk. She applied a lidocaine patch with minimal relief. No fever, chest pain, shortness of breath, abdominal pain, urinary or bowel complaints, numbness, paresthesias. REVIEW OF SYSTEMS: A comprehensive 10 system review of systems is otherwise negative aside from elements mentioned in the history of present illness and medical decision making. PHYSICAL EXAM: HR, BP, O2 Sat, RR. Temp noted General Appearance: Lying prone in bed with lidocaine patches on the back of her knees. Alert, well hydrated, appropriate, and non-toxic appearing. Head: Atraumatic without scalp tenderness or obvious injury Eyes: Pupils equal, round, reactive to light and accommodation, EOMI, no trauma , no injection. Ears: Clear bilaterally, no perforation, normal landmarks Nose: Atraumatic, no rhinorrhea, clear. Throat: There is no erythema or exudates, no lesions, normal tonsils, mucus membranes moist. Neck: Supple, 2+ carotid upstroke, nontender, no lymphadenopathy. Respiratory: No retractions, no distress, no wheezes, and no accessory muscle use. Lungs are clear to auscultation bilaterally. Cardiovascular: Regular rate and rhythm, no murmurs, rubs, or gallops. Bilateral carotid, radial, dorsalis pedis, and posterior tibial pulses intact. Good capillary refill all extremities. Gastrointestinal: Abdomen is soft, nontender, non-distended, no masses, no rebound, no guarding, no peritoneal signs. Musculoskeletal: Bilateral posterior knee tenderness at location of Vallecillo's Cysts. Normal active ROM of all extremities, atraumatic. Neurological: Alert, appropriate, and interactive. The patient has normal DTRs and non-focal cranial nerves, motor, sensory, and cerebellar exam. Skin: No rashes, good turgor, no nodules on palpation. Past medical history: Vallecillo cysts requiring drainage, asthma, kidney cancer Past surgical history: Hysterectomy, parathyroidectomy, thyroidectomy, nephrectomy Family history: Denies Social history: at bedside, retired, lives in [place] DIAGNOSTICS/PROCEDURES/CRITICAL CARE TIME: Not indicated. DIFFERENTIAL DIAGNOSIS: The differential diagnosis for the patient's knee pain included but was not limited to Vallecillo's cyst, fracture, ligamentous injury, contusion, muscular strain, and meniscus injury. 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 Due to the pain she is not ambulatory. Upon exam she is lying prone with lidocaine patches on the posterior aspect of her knees. She also has acute tenderness at the location of the Vallecillo's cysts. I will consult with ortho to discuss further treatment of this patient; labs ordered. 1455: I consulted with Dr. Driver, orthopedic surgeon, regarding patient. The cysts will not be drained, but the patient will need to be admitted for pain control and steroid administration via US. 1500: I consulted with the hospitalist service, Dr. Simpson accepts admission of this patient to med/surg. 1515: Reassessed patient and discussed plan for admission which the patient and her are comfortable with. Departure - Departure Disposition: [facility] Inpatient Acute Clinical Impression: Pain management Vallecillo's cyst Qualifiers: Laterality: unspecified laterality Qualified Code(s): M71.20 - Synovial cyst of popliteal space [Vallecillo], unspecified knee Condition: Fair Referrals: Laquita Perkins MD [Primary Care Provider] - As per Instructions Report Scribed for: Mario Alberto Tellez Report Scribed by: Mary Oliveros Date of Report: 06/27/18 Time of Report: 14:57
[2018-06-27 15:44] LABS: PLATELET COUNT 228 10^3/uL (150-400)
[2018-06-27] MEDS ORDERED: fentaNYL 100 MCG/2 ML INJ IVP ONE (15:49)
[2018-06-27] MEDS ORDERED: PROMETHAZINE HCL 25 MG/ML INJ IVP PRN (17:22)
[2018-06-27] MEDS ORDERED: oxyCODONE IR 5 MG TAB PO PRN (17:22)
[2018-06-27] MEDS ORDERED: ONDANSETRON 4 MG/2 ML VIAL IVP PRN (17:22)
[2018-06-27] MEDS ORDERED: HYDROCODONE/APAP 5/325 TAB PO PRN (17:22)
[2018-06-27] MEDS ORDERED: HYDROmorphONE/DILAUDID 1 MG/ML INJ IVP PRN (17:22)
[2018-06-27] MEDS ORDERED: ONDANSETRON DISINTEGRATING 4 MG TAB PO PRN (17:22)
[2018-06-27] MEDS: NS 1,000 ML IV SCH (18:16)
[2018-06-27] MEDS: ACETAMINOPHEN 325 MG TAB PO PRN (20:04)
[2018-06-27] MEDS: CALCIUM CARBONATE 500 MG CHEWABLE TAB PO SCH (20:04)
--- NOTE | 2018-06-27 21:18 | PDGENHP ---
History and Physical - Chief Complaint weakness,knee pain - History of Present Illness 77 yo F with PMH that includes mild dementia, hypothyroid and asthma presenting from home with weakness and knee pain with inability to ambulate. Patient was recently hospitalized for diplopia, weakness and confusion and discharged on the . She notes she felt fine the following day, but then today when she tried to walk, found that she could not. She had significant bilateral knee pain limiting her ability to walk. She denies any of the other sxs that she was having at her prior hospitalization. She has not had any other associated sxs such as fever or chills, n/v, chest pain, sob. She states she has had bilateral vallecillo's cyts for years and previously has always had them drained when they would hurt. History Information - Allergies/Home Medication List Allergies/Adverse Reactions: azithromycin [From Zithromax] Allergy (Severe, Verified 06/27/18 14:12) C DIFF cephalexin [Cephalexin] Allergy (Severe, Verified 06/27/18 14:12) Diarrhea cephalexin monohydrate [From Keflex] Allergy (Severe, Verified 06/27/18 14:12) THICKENED TONGUE, DIARRHEA clindamycin [Clindamycin] Allergy (Severe, Verified 06/27/18 14:12) C DIFF metronidazole [From Flagyl] Allergy (Severe, Verified 06/27/18 14:12) POSSIBLE TIA SYMPTOMS Metronidazole HCl [From Flagyl] Allergy (Severe, Verified 06/27/18 14:12) POSSIBLE TIA SYMPTOMS Penicillins Allergy (Severe, Verified 06/27/18 14:12) THROAT CLOSES Sulfa (Sulfonamide Antibiotics) Allergy (Severe, Verified 06/27/18 14:12) KIDNEY DAMAGE banana Allergy (Verified 06/27/18 14:12) clarithromycin Allergy (Verified 06/27/18 14:12) ARTICHOKE, EGG PLANT Allergy (Severe, Uncoded 06/27/18 14:12) BLEEDING MOUTH Home Medications: Multivitamins [Multivitamin (*)] 1 tab PO DAILY 02/02/16 [Last Taken 06/26/18 08 :00] Cholecalciferol Vit D3 [Vitamin D3 (*)] 1,000 units PO DAILY 06/23/18 [Last Taken 06/26/18 08:00] Diltiazem HCl [Cartia Xt] 120 mg PO DAILY 06/23/18 [Last Taken 06/26/18 08:00] Estradiol [Estradiol 1 MG (*)] 1 mg PO DAILY 06/23/18 [Last Taken 06/26/18 08:00 ] Levothyroxine [Synthroid 50 mcg (*)] 25 mcg PO DAILY 06/23/18 [Last Taken 08:00] Liothyronine Sodium [Cytomel 5 mcg (*)] 2.5 mcg PO DAILY 06/23/18 [Last Taken 08:00] Rosuvastatin Calcium [Crestor] 5 mg PO DAILY 06/23/18 [Last Taken 06/26/18 08:00 ] Acetaminophen/ASA/Caffeine [Excedrin Tablet (*)] 1 tab PO DAILY 06/27/18 [Last Taken 06/27/18 08:00] Calcium Carbonate [Tums 500MG (*)] 500 mg PO HS 06/27/18 [Last Taken 06/24/18] I have personally reviewed and updated: family history, medical history, social history, surgical history - Past Medical History asthma, cancer (kidney), dementia Additional medical history: c diff x 3. hypothyroid - Surgical History Reports: cancer surgery (kidney resection), hysterectomy Additional surgical history: partial thyroidectomy. partial parathyroidectomy - Family History Positive for: non-pertinent - Social History Smoking Status: Never smoked Alcohol Use: None Drug Use: None Additional social history: , lives independently Review of Systems Review of Systems: ROS: 10pt was reviewed & negative except for what was stated in HPI & below Physical Exam Physical Exam: Temp Pulse Resp BP Pulse Ox 36.6 C 68 16 141/76 H 97 06/27/18 19:29 06/27/18 19:29 06/27/18 19:29 06/27/18 19:29 06/27/18 19:29 Constitutional: no apparent distress, appears nourished Eyes: PERRL, anicteric sclera Ears, Nose, Mouth, Throat: moist mucous membranes, hearing normal Cardiovascular: regular rate and rhythym, no murmur, rub, or gallop, No edema Respiratory: no respiratory distress, no rales or rhonchi Gastrointestinal: normoactive bowel sounds, soft, non-tender abdomen Genitourinary: no bladder tenderness Skin: warm, normal color Musculoskeletal: full muscle strength, joint tenderness Neurologic: AAOx3 Psychiatric: interacting appropriately, not anxious, not encephalopathic Lab Data & Imaging Review 06/27/18 15:31 06/27/18 15: WBC 11.03 10^3/uL (3.80-9.50) H 06/27/18 15: RBC 4.40 10^6/uL (4.18-5.33) 06/27/18 15: Hgb 13.5 g/dL (12.6-16.3) 06/27/18 15: Hct 39.1 % (38.0-47.0) 06/27/18 15: MCV 88.9 fL (81.5-99.8) 06/27/18 15: MCH 30.7 pg (27.9-34.1) 06/27/18 15: MCHC 34.5 g/dL (32.4-36.7) 06/27/18 15: RDW 13.1 % (11.5-15.2) 06/27/18 15: Plt Count 228 10^3/uL (150-400) 06/27/18 15: MPV 9.9 fL (8.7-11.7) 06/27/18 15: Neut % (Auto) 71.9 % (39.3-74.2) 06/27/18 15: Lymph % (Auto) 18.0 % (15.0-45.0) 06/27/18 15: [place] % (Auto) 7.9 % (4.5-13.0) 06/27/18 15: Eos % (Auto) 1.4 % (0.6-7.6) 06/27/18 15: Baso % (Auto) 0.4 % (0.3-1.7) 06/27/18 15: Nucleat RBC Rel Count 0.0 % (0.0-0.2) 06/27/18 15: Absolute Neuts (auto) 7.95 10^3/uL (1.70-6.50) H 06/27/18 15: Absolute Lymphs (auto) 1.98 10^3/uL (1.00-3.00) 06/27/18 15: Absolute Monos (auto) 0.87 10^3/uL (0.30-0.80) H 06/27/18 15:31 Absolute Eos (auto) 0.15 10^3/uL (0.03-0.40) 06/27/18 15:31 Absolute Basos (auto) 0.04 10^3/uL (0.02-0.10) 06/27/18 15:31 Absolute Nucleated RBC 0.00 10^3/uL (0-0.01) 06/27/18 15:31 Immature Gran % 0.4 % (0.0-1.1) 06/27/18 15:31 Immature Gran # 0.04 10^3/uL (0.00-0.10) 06/27/18 15:31 Sodium 140 mEq/L (135-145) 06/27/18 15:31 Potassium 3.2 mEq/L (3.5-5.2) L 06/27/18 15:31 Chloride 108 mEq/L (97-110) 06/27/18 15:31 Carbon Dioxide 25 mEq/l (22-31) 06/27/18 15:31 Anion Gap 7 mEq/L (6-14) 06/27/18 15:31 BUN 18 mg/dL (7-23) 06/27/18 15:31 Creatinine 0.8 mg/dL (0.6-1.0) 06/27/18 15:31 Estimated GFR > 60 06/27/18 15:31 Glucose 99 mg/dL (70-100) 06/27/18 15:31 Calcium 9.4 mg/dL (8.5-10.4) 06/27/18 15:31 Visualized and Interpreted imaging results: Yes Interpretation: bilateral knee xrays with OA Assessment & Plan Assessment: Vallecillo's cyst (Acute) Pain management (Acute) 77 yo F with dementia, bilateral vallecillo's cysts presenting with bilateral knee pain and weakness # bilateral knee pain: severe initially and limiting her ability to walk, xrays without acute findings but patient with known bilateral bakers cysts that have caused her pain in the past and which she has previously had drained. ER doctor in consultation with ortho who is recommending IR steroid injection of the bilateral knees as a better treatment for bakers cysts and notes that drainage is no longer recommended. IR request placed. PT/OT to evaluate. If pain not improved, will need formal ortho consultation after that. # gait instability: presumably due to above, did have recent hospitalization for generalized weakness that was thought to be due in part to diplopia and tremors and related perhaps to side effect from aricept, currently does not have any of those sxs present however. Pt/ot # dementia: relatively mild, recently discontinue aricept due to above, recent IP evaluation by neurology # hypothyroid: continue synthroid and cytomel # asthma: no e/o current issues # observation status Patient new to my care. Old records reviewed and summarized as above. Care plan reviewed with ER doctor as above, further hx obtained from patients and daughter present at bedside.
[2018-06-28] MEDS: NS 1,000 ML IV SCH (05:24)
[2018-06-28 05:28] LABS: PLATELET COUNT 200 10^3/uL (150-400)
[2018-06-28] MEDS: ESTRADIOL 1 MG TAB PO SCH (09:04)
[2018-06-28] MEDS: LIOTHYRONINE SODIUM 5 MCG TAB PO SCH (09:04)
[2018-06-28] MEDS: ROSUVASTATIN CALCIUM 10 MG TAB PO SCH (09:05)
[2018-06-28] MEDS: ACETAMINOPHEN 325 MG TAB PO PRN ×2 (09:05→21:05)
[2018-06-28] MEDS: CHOLECALCIFEROL VIT D3 1,000 UNITS TAB PO SCH (09:06)
[2018-06-28] MEDS: MULTIVITAMINS 1 EACH TAB PO SCH (09:06)
[2018-06-28] MEDS: DILTIAZEM CD 120 MG CAP PO SCH (09:06)
[2018-06-28] MEDS: LEVOTHYROXINE 50 MCG TAB PO SCH (09:06)
--- NOTE | 2018-06-28 10:44 | ASMTCMCOM ---
CM Note CM Note Notes: Pt is a 77 y/o female admitted for weakness and knee pain. Pt has a hx of mild dementia along w/ other medical issues. Therapies have been ordered and awaiting recommendations. Pt was here at [facility] 06/24/18 to 06/25/18 for encephalopathy. Pt may need a SNF. CM to follow. Plan: TBD Date Signed: 06/28/2018 10:44 AM Electronically Signed By:SANGEETA Mike
--- NOTE | 2018-06-28 11:19 | HOSPPROG ---
Hospitalist Progress Note Assessment/Plan: 77 yo F with dementia, bilateral vallecillo's cysts presenting with bilateral knee pain and weakness. First encounter on this admission, chart reviewed. *bilateral knee pain: severe initially and limiting her ability to walk. - xrays without acute findings but patient with known bilateral bakers cysts that have caused her pain in the past and which she has previously had drained. -order for IR steroid injection -spoke w Dr Bentley who will see Traci *gait instability: presumably due to above, did have recent hospitalization for generalized weakness that was thought to be due in part to diplopia and tremor and related perhaps to side effect from Aricept, currently does not have any of those sxs present however # dementia: relatively mild, recently discontinue Aricept due to above, recent IP evaluation by neurology # hypothyroid: continue Synthroid and Cytomel -recent TSH is stable # asthma: no e/o current issues # Plan: Dr Bentley to see, she will require another midnight stay due to difficulty w walking and pain due to this. Objective: Vital Signs Temp Pulse Resp BP Pulse Ox 36.5 C 66 17 155/92 H 99 06/28/18 07:53 06/28/18 09:06 06/28/18 07:53 06/28/18 09:06 06/28/18 07:53 Laboratory Results 06/28/18 05:07 06/28/18 05:07 06/27/18 06/28/18 06/29/18 05:59 05:59 05:59 Intake Total 1550 Output Total 600 300 Balance 950 -300 - Physical Exam Constitutional: appears nourished, other (thin) Eyes: PERRL Ears, Nose, Mouth, Throat: hearing normal Cardiovascular: regular rate and rhythym Respiratory: no respiratory distress Gastrointestinal: normoactive bowel sounds Skin: warm, other (able to palpate a large cyst under her right knee area) Musculoskeletal: generalized weakness Neurologic: AAOx3 Psychiatric: interacting appropriately ICD10 Worksheet Patient Problems: Problems Problem Status Onset Vallecillo's cyst Acute Pain management Acute Diplopia Acute Facial contusion Acute Multiple rib fractures Acute Tremor Acute Weakness Acute
--- NOTE | 2018-06-28 13:19 | GCON ---
[f rep st] CONSULTATION REASON FOR CONSULTATION: Bilateral knee pain. HISTORY: Relative to consultation, the patient is a 77-year-old community ambulator with a history o f progressive bilateral knee pain. She has a history of "Vallecillo's cyst" over 10 years ago, which had been drained. She developed a recurrence of knee pain with pain in both knees localized, both, to th e anterior and posterior aspects. PHYSICAL EXAMINATION: There is mild diffuse swelling about both knees with no gross effusion. She h as tenderness about her medial and lateral joint lines. She is additionally tender along the anterio r and posterior aspects of her knees. No definitive "mass" is appreciated along the posterior aspect of the knee. IMAGING: Radiographs of bilateral knees show severe tricompartmental knee arthrosis. ASSESSMENT: Bilateral severe knee arthrosis. PLAN: The patient is scheduled to undergo an aspiration of her "Vallecillo's cyst" under ultrasound amanda ncvaleria. Other options, such as steroid injections, were discussed. Ultimately, if her symptoms warrant , total knee arthroplasty is an option. She is allowed to be weightbearing as tolerated. Followup w ill be on an as-needed basis. /[id number]/MODL
[2018-06-28] MEDS ORDERED: BUPIVACAINE 0.25% 30 ML SDV ONE (14:23)
[2018-06-28] MEDS ORDERED: LIDOCAINE 1% 300 MG/30 ML SDV ONE (14:23)
[2018-06-28] MEDS ORDERED: DEPO METHYLPREDNISOLONE 40 MG/ML SDV ONE (14:23)
[2018-06-28] MEDS: CALCIUM CARBONATE 500 MG CHEWABLE TAB PO SCH (21:03)
[2018-06-29] MEDS: LIOTHYRONINE SODIUM 5 MCG TAB PO SCH (09:30)
[2018-06-29] MEDS: ESTRADIOL 1 MG TAB PO SCH (09:31)
[2018-06-29] MEDS: LEVOTHYROXINE 50 MCG TAB PO SCH (09:31)
[2018-06-29] MEDS: DILTIAZEM CD 120 MG CAP PO SCH (09:31)
[2018-06-29] MEDS: MULTIVITAMINS 1 EACH TAB PO SCH (09:31)
[2018-06-29] MEDS: CHOLECALCIFEROL VIT D3 1,000 UNITS TAB PO SCH (09:32)
[2018-06-29] MEDS: ROSUVASTATIN CALCIUM 10 MG TAB PO SCH (09:32)
[2018-06-29 09:38] VITALS: BP 159/87
--- NOTE | 2018-06-29 12:55 | HOSPPROG ---
Hospitalist Progress Note Assessment/Plan: 77 yo F with dementia, bilateral vallecillo's cysts presenting with bilateral knee pain and weakness. *bilateral knee pain: severe initially and limiting her ability to walk. - xrays without acute findings but patient with known bilateral bakers cysts that have caused her pain in the past and which she has previously had drained. -pain much improved w Steroid injection and drainage -she should f/u with Dr Bentley if she has any further issues *gait instability -evaluated by therapies; should get a front wheeled walker # dementia: relatively mild, recently discontinue Aricept due to above, recent IP evaluation by neurology # hypothyroid: continue Synthroid and Cytomel -recent TSH is stable # asthma: no e/o current issues # Plan: dc today Subjective: Traci feels great, wants to leave now. Objective: Vital Signs Temp Pulse Resp BP Pulse Ox 36.5 C 64 16 159/87 H 96 06/29/18 00:00 06/29/18 09:31 06/29/18 00:00 06/29/18 09:31 06/29/18 08:35 Laboratory Results 06/28/18 05:07 06/28/18 05:07 06/28/18 06/29/18 06/30/18 05:59 05:59 05:59 Intake Total 1550 1210 Output Total 600 2150 Balance 950 -940 - Physical Exam Constitutional: no apparent distress, appears nourished, not in pain Eyes: PERRL Ears, Nose, Mouth, Throat: hearing normal Cardiovascular: regular rate and rhythym Respiratory: no respiratory distress Gastrointestinal: normoactive bowel sounds Skin: warm Musculoskeletal: generalized weakness, other (does well w walker in room) Neurologic: AAOx3 Psychiatric: interacting appropriately, poor memory ICD10 Worksheet Patient Problems: Problems Problem Status Onset Vallecillo's cyst Acute Pain management Acute Diplopia Acute Facial contusion Acute Multiple rib fractures Acute Tremor Acute Weakness Acute
--- NOTE | 2018-06-29 14:51 | PDIAF ---
- Diagnosis Diagnosis: bilateral popliteal cysts, weakness, gait instability Code Status: Full Code - Medication Management Discharge Medications: electronically signed and located in the Home Medication List. - Orders Services needed: Home Care, Physical Therapy, Occupational Therapy Home Care Face to Face: I certify that this patient was under my care and that I had the required [id number] encounter meeting the encounter requirements on the discharge day. My findings support the fact that the patient is homebound as defined in Home Care Face to Face Continued: CMS Chapter 7 Medicare Benefits Manual 30.1.1 , The condition of the patient is such that there exists a normal inability to leave home and consequently, leaving home would require a considerable and taxing effort. Additional Instructions: follow up with Dr Bentley for you knees, he is the orthopedic surgeon use your walker at all times at home - Follow Up Care Current Providers and Referrals: Laquita Perkins MD [Primary Care Provider] - As per Instructions Ranjit Bentley MD [Medical Doctor] -
--- NOTE | 2018-06-29 15:18 | ASMTCMCOM ---
CM Note CM Note Notes: PT rec HHC, pt and amenable to resumption of services with [facility] OT/PT. Orders to be obtained via [employer]. Rosa at [facility] updated. Date Signed: 06/29/2018 03:17 PM Electronically Signed By:ANTONINA Hernandez
--- NOTE | 2018-06-29 15:18 | ASMTLACE ---
LACE Length of stay for Answers: 3 days current admission Acuity / Level of Answers: Yes Care: Did the patient have an inpatient admission? Comorbidities - select Answers: Dementia all that apply Other Notes: Hypothyroid; Asthma; Hx of kidney cancer # of Emergency department Answers: 1-2 visits in the last 6 months Score: 11 Date Signed: 06/29/2018 03:17 PM Electronically Signed By:ANTONINA Hernandez
--- NOTE | 2018-06-29 17:09 | GDS ---
[f rep st] DISCHARGE SUMMARY DISCHARGE DIAGNOSES: 1. Bilateral knee pain, initially limiting her ability to walk. 2. Gait instability. 3. Dementia. 4. Hypothyroidism. 5. Asthma. CONSULTATION: Dr. Bentley Briefly, the patient is a 77-year-old female with dementia, bilateral Vallecillo cysts, who presented with bilateral knee pain and weakness. Knee x-rays were performed, and they showed right knee osteoarthritis, probably involving the medial and lateral compartments with chondrocalcinosis. The left knee x-ray showed advanced left knee osteoarthritis, predominantly in the medial and lateral compartments. She was seen and evaluated by the interventional radiologist. She subsequently had an aspiration and steroid injection of complex popliteal cyst. Today, she says she is feeling markedly better. I have also explained to her that she has significant knee disease and should get followup with Dr. Bentley in the outpatient setting. HOSPITAL COURSE PER PROBLEM: 1. Bilateral knee pain. Her pain was actually behind the knee where the Vallecillo cysts were. She said the pain has completely resolved with the drainage and steroid injection. Also recommended to follow up with Dr. Bentley. 2. Gait instability. Therapies are recommending front-wheeled walker. She already has one. 3. Dementia, relatively mild. On her last admission, she was seen by Dr. Espinoza. Her Aricept was discontinued due to tremors. 4. Hypothyroidism, on Synthroid and Cytomel. Her most recent TSH was stable. 5. Asthma. No issues with this. DISCHARGE CONDITION: Stable. Blood pressure is 156/84, heart rate 56, respiratory rate is 16, O2 sat on room air 96%, temperature is 36.5 Celsius. MEDICATIONS AT DISCHARGE: Please see the EMR. DISCHARGE INSTRUCTIONS: 1. Follow up with Dr. Bentley. 2. If she develops fever, chills, shortness of breath, return to the ER. 3. Use her walker at all times while she is at home. /[id number]/MODL MTDD
--- NOTE | 2018-06-30 10:02 | ASDISCHSUM ---
Discharge Information Plan Status:Home with Home Health Medically Cleared to Leave: Discharge Date:06/29/2018 04:07 PM CM D/C Disposition: ADT D/C Disposition:Home Health Service Projected Discharge Date:06/29/2018 11:00 AM Transportation at D/C: Discharge Delay Reason: Follow-Up Date:06/29/2018 11:00 AM Discharge Slot: Final Diagnosis: Placement Information Referral Type:*Home Health Care Services Referral ID:[id number] Provider Name:[facility] Address 1:[address] Address 2: City:[place] Selection Factors: State:[place] Patient Contact Information Contact Name:STEPHEN Relationship: Address:[address] City:[place] Alternate Phone: State/Zip Code:[place] [address] Email: Financial Information Financial Class:Medicare Advantage Plans Primary Plan Desc:[place] [employer] ADV Primary Plan Number:[id number] Secondary Plan Desc: Secondary Plan Number: Assessment Information LACE LACE Length of stay for Answers: 3 days current admission Acuity / Level of Answers: Yes Care: Did the patient have an inpatient admission? Comorbidities - select Answers: Dementia all that apply Other Notes: Hypothyroid; Asthma; Hx of kidney cancer # of Emergency department Answers: 1-2 visits in the last 6 months Score: 11 Date Signed: 06/29/2018 03:17 PM Electronically Signed By:ANTONINA Hernandez [facility] CM Progress Note CM Note CM Note Notes: Pt is a 77 y/o female admitted for weakness and knee pain. Pt has a hx of mild dementia along w/ other medical issues. Therapies have been ordered and awaiting recommendations. Pt was here at [facility] 06/24/18 to 06/25/18 for encephalopathy. Pt may need a SNF. CM to follow. Plan: TBD Date Signed: 06/28/2018 10:44 AM Electronically Signed By:SANGEETA Mike [facility] CM Progress Note CM Note CM Note Notes: PT rec HHC, pt and amenable to resumption of services with [facility] OT/PT. Orders to be obtained via [employer]. Rosa at [facility] updated. Date Signed: 06/29/2018 03:17 PM Electronically Signed By:ANTONINA Hernandez Intervention Information
== END 2018-06-29 16:07 | disposition home health service (06) ==
LOC: INTOOBSV 15:01 → F3N 16:55
PROVIDERS: ADMIT Internal Medicine; ATTEND Internal Medicine
PROC: 0M9N3ZZ Drainage of Right Knee Bursa and Ligament, Percutaneous Approach (ICD-10-PCS; principal; 2018-06-27)
PROC: 3E0233Z Introduction of Anti-inflammatory into Muscle, Percutaneous Approach (ICD-10-PCS; principal; 2018-06-27)
PROC: 0M9P3ZZ Drainage of Left Knee Bursa and Ligament, Percutaneous Approach (ICD-10-PCS; principal; 2018-06-27)
DX: M17.0 Bilateral primary osteoarthritis of knee (principal); M71.21 Synovial cyst of popliteal space [Baker], right knee; M71.22 Synovial cyst of popliteal space [Baker], left knee; F03.90 Unspecified dementia, unspecified severity, without behavioral disturbance, psychotic disturbance, mood disturbance, and anxiety; E03.9 Hypothyroidism, unspecified; J45.909 Unspecified asthma, uncomplicated; Z90.710 Acquired absence of both cervix and uterus; Z85.528 Personal history of other malignant neoplasm of kidney; Z88.0 Allergy status to penicillin; Z88.2 Allergy status to sulfonamides
CPT/HCPCS: 20611; 73562; 76942; 97161; 97165; G0378; J1030; J3010; 96374